=== PATIENT | female | born 1995 | race Caucasian/White ===

== ENCOUNTER 2016-11-22 21:35 | Emergency (ER) | payer OTHER ==
[2016-11-22 21:56] VITALS: BP 128/71; PULSE 68; TEMP 98.1; BMI 26.4
--- NOTE | 2016-11-22 22:21 | PDOC ---
History of Present Illness - General Chief Complaint: Bone Injury Stated Complaint: LT FOOT INJURY Time Seen by Provider: 11/22/16 22:04 History Source: Patient Exam Limitations: No Limitations - History of Present Illness Initial Comments: 11/22/16 22:18 CC pain left great toe post trip and hitting wall with toe Occurred: reports: just prior to arrival Severity: Yes: moderate Lower Extremity Pain Location: left: 1st toe Past History - Past Medical History Allergies/Adverse Reactions: Allergies Allergy/AdvReac Type Severity Reaction Status Date / Time No Known Allergies Allergy Verified 11/22/16 21:53 Home Medications: Ambulatory Orders No Home Medications 0 dose .ROUTE UTDICT 03/06/13 - Immunization History Immunization Up to Date: Yes - Psycho/Social/Smoking Cessation Hx Anxiety: No Suicidal Ideation: No Smoking Status: No Smoking History: Never smoked Number of Cigarettes Smoked Daily: 0 Information on smoking cessation initiated: No Hx Alcohol Use: No Drug/Substance Use Hx: No Review of Systems - Review of Systems Constitutional: No: Symptoms Reported, Chills, Fever HEENTM: No: Symptoms Reported Respiratory: No: Symptoms reported, Cough Musculoskeletal: Yes: Joint Pain, Joint Swelling Integumentary: Yes: Erythema, Other *Physical Exam - Vital Signs Last Vital Signs Temp Pulse Resp BP Pulse Ox 98.1 F 68 12 128/71 97 11/22/16 21:54 11/22/16 21:54 11/22/16 21:54 11/22/16 21:54 11/22/16 21:54 - Physical Exam General Appearance: Yes: Appropriately Dressed. No: Apparent Distress HEENT: negative: TMs Normal, Pharynx Normal Neck: positive: Supple Respiratory/Chest: positive: Lungs Clear Musculoskeletal: positive: Other (STS dital great toe with tenderness) Integumentary: positive: Bruising (distal half toe), Other (no skin break; nail intact) ED Treatment Course - ADDITIONAL ORDERS Additional order review: Laboratory Results 11/22/16 22:00 Urine HCG, Qual Negative - RADIOLOGY Radiology Studies Ordered: Category Date Time Status TOE(S) LEFT [RAD] Stat Radiology 11/22/16 22:15 Ordered Medical Decision Making - Medical Decision Making 11/22/16 22:57 no fracture; will jayashree splint x 3-4 days *DC/Admit/Observation/Transfer Diagnosis at time of Disposition: Contusion of toe of left foot Qualifiers: Encounter type: initial encounter Toe: great toe Damage to nail status: without damage Qualified Code(s): S90.112A - Contusion of left great toe without damage to nail, initial encounter - Discharge Dispostion Disposition: HOME Condition at time of disposition: Stable Admit: No - Patient Instructions Additional Instructions: wear jayashree splint; rest area
== END 2016-11-22 23:02 | disposition home or self-care (01) ==
LOC: JERFT 21:35
DX: S90.112A Contusion of left great toe without damage to nail, initial encounter (principal); W01.198A Fall on same level from slipping, tripping and stumbling with subsequent striking against other object, initial encounter; Y93.89 Activity, other specified; Y92.89 Other specified places as the place of occurrence of the external cause
CPT/HCPCS: 73660-TC; 84703; 99281-25

== ENCOUNTER 2019-02-26 03:39 | Emergency (ER) | payer OTHER ==
[2019-02-26 03:47] VITALS: BP 106/67; PULSE 66; TEMP 98.4; BMI 26.4
[2019-02-26] MEDS ORDERED: DEXAMETHASONE LIQUID 0.5 MG/5 ML 240 ML BULK BOTTLE PO ONE (04:15)
[2019-02-26] MEDS ORDERED: diphenhydrAMINE HCL 50 MG CAPSULE PO ONE (04:15)
--- NOTE | 2019-02-26 04:23 | PDOC ---
History of Present Illness - General Chief Complaint: Allergic Reaction Stated Complaint: RASH Time Seen by Provider: 02/26/19 04:11 History Source: Patient Exam Limitations: No Limitations - History of Present Illness Initial Comments: 02/26/19 04:20 HISTORY OF PRESENT ILLNESS: 23-year-old female denies medical history of presents emergency Department for evaluation of hives which started upon awaking on 02/25. Patient denies any change in soaps, shampoos, detergents, cosmetics, foods or medications. Patient is tried putting hydrocortisone ointment on the lesions with minimal result of the itching. No recent travel or sick contacts. PAST MEDICAL HISTORY: Denies past medical history SURGICAL HISTORY: Denies ALLERGIES: No known drug allergies REVIEW OF SYSTEMS General/Constitutional: Denies fever or chills. Denies weakness, weight change. HEENT: Denies change in vision. Denies ear pain or discharge. Denies sore throat. Cardiovascular: Denies chest pain or shortness of breath. Respiratory: Denies cough, wheezing, or hemoptysis. Gastrointestinal: Denies nausea, vomiting, diarrhea or constipation. Denies rectal bleeding. Genitourinary: Denies dysuria, frequency, or change in urination. Musculoskeletal: Denies joint or muscle swelling or pain. Denies neck or back pain. Skin and breasts: see HPI Neurologic: Denies headache, vertigo, loss of consciousness, or loss of sensation. Psychiatric: Denies depression or anxiety. Endocrine: Denies increased thirst. Denies abnormal weight change. Hematologic/Lymphatic: Denies anemia, easy bleeding, or history of blood clots. Allergic/Immunologic: Denies hives or skin allergy. Denies latex allergy. PHYSICAL EXAM General Appearance: Well-appearing, appropriately dressed. No apparent distress , no intoxication. Neck: No stridor. Respiratory/Chest: Lungs CTAB. No shortness of breath, chest tenderness, respiratory distress, accessory muscle use. No crackles, rales, rhonchi, stridor , wheezing, dullness Cardiovascular: RRR. S1, S2. No JVD, murmur, bradycardia, tachycardia. Vascular Pulses: Dorsalis-Pedis (R): 2+, Dorsalis-Pedis (L): 2+ Musculoskeletal/Extremities: Normal inspection. FROM of all extremities, normal capillary refill. Pelvis Stable. No CVA tenderness. No tenderness to extremities, pedal edema, swelling, erythema or deformity. Integumentary: Scattered hives present to bilateral upper extremities, lower back started approximately 24 hours ago. Past History - Past Medical History Allergies/Adverse Reactions: Allergies Allergy/AdvReac Type Severity Reaction Status Date / Time No Known Allergies Allergy Verified 02/26/19 03:44 Home Medications: Ambulatory Orders No Home Medications 0 dose .ROUTE UTDICT 03/06/13 hydrOXYzine HCL [Atarax -] 25 mg PO TID #21 tablet 02/26/19 COPD: No - Immunization History Immunization Up to Date: Yes - Suicide/Smoking/Psychosocial Hx Smoking Status: No Smoking History: Never smoked Have you smoked in the past 12 months: No Number of Cigarettes Smoked Daily: 0 Information on smoking cessation initiated: No Hx Alcohol Use: No Drug/Substance Use Hx: No *Physical Exam - Vital Signs Last Vital Signs Temp Pulse Resp BP Pulse Ox 98.4 F 66 18 106/67 99 02/26/19 03:42 02/26/19 03:42 02/26/19 03:42 02/26/19 03:42 02/26/19 03:42 Medical Decision Making - Medical Decision Making 02/26/19 04:18 A/P: 23-year-old female with urticaria No inciting, aggravating or alleviating factors or conditions identified No OP edema present No stridor noted Respirations are even and unlabored Benadryl 50 mg orally now Decadron 10 mg orally now Discharge home with prescription for hydroxyzine I discussed the physical exam findings, ancillary test results and final diagnoses with the patient. I answered all of the patient's questions. The patient was satisfied with the care received and felt comfortable with the discharge plan and treatment plan. The patient will call their primary care physician within 24 hours to arrange follow-up and will return to the Emergency Department with any new, persistent or worsening symptoms. *DC/Admit/Observation/Transfer Diagnosis at time of Disposition: Urticaria - Discharge Dispostion Disposition: HOME Condition at time of disposition: Stable Decision to Admit order: No - Prescriptions Prescriptions: hydrOXYzine HCL [Atarax -] 25 mg PO TID #21 tablet - Referrals Referrals: Alvaro Hope MD [Primary Care Provider] - - Patient Instructions Additional Instructions: Rest, keep cool and dry- avoid strenuous activity or hot /humid environments Less hot showers, no abrasive soaps May apply Aveeno, calamine lotion, [id number] hydrocortisone creams as needed for symptoms May use hydroxizine at night for antihistamine, Zyrtec/ Karlee or Claritin for daytime antihistamine use to help with itching May use [id number] hydrocortisone cream on all areas except face Try to identify cause for rash and avoid exposures Followup with PMD in one week if no resolution Make appointment with tight barrel inspector for evaluation when possible - Post Discharge Activity
[2019-02-26] MEDS ORDERED: diphenhydrAMINE HCL 25 MG CAPSULE (FP) PO ONE (04:25)
[2019-02-26] MEDS ORDERED: DEXAMETHASONE SOD PHOSPHATE 10 MG/1 ML VIAL ONE (04:25)
== END 2019-02-26 04:35 | disposition home or self-care (01) ==
LOC: JER 03:39
DX: L50.9 Urticaria, unspecified (principal)
CPT/HCPCS: 99281-25

== ENCOUNTER 2022-03-16 22:23 | Emergency (ER) | payer OTHER ==
[2022-03-16 22:33] VITALS: BMI 58.9
[2022-03-16] MEDS ORDERED: LIDOCAINE VISCOUS 2% ORAL/TOP 15 ML UNIT-DOSE CUP MM ONE (23:08)
[2022-03-16] MEDS ORDERED: ACETAMINOPHEN 1000 MG/100 ML BAG IVPB ONE (23:09)
[2022-03-16] MEDS ORDERED: ACETAMINOPHEN INJECTION 100 ML IVPB ONE (23:29)
[2022-03-16] MEDS ORDERED: DEXAMETHASONE SOD PHOSPHATE 10 MG/1 ML VIAL IVPUSH ONE (23:52)
[2022-03-17] MEDS ORDERED: DEXAMETHASONE SOD PHOSPHATE 10 MG/1 ML VIAL ONE (00:01)
[2022-03-17 01:39] VITALS: BP 115/85; TEMP 98.6
[2022-03-17] MEDS ORDERED: SODIUM CHLORIDE 1,000 ML IV STA (01:50)
[2022-03-17 01:59] VITALS: PULSE 108
== END 2022-03-17 02:06 | disposition short-term general hospital (02) ==
LOC: JER 22:23
PROC: 3E0333Z Introduction of Anti-inflammatory into Peripheral Vein, Percutaneous Approach (ICD-10-PCS; principal; 2022-03-16)
PROC: 3E033GC Introduction of Other Therapeutic Substance into Peripheral Vein, Percutaneous Approach (ICD-10-PCS; 2022-03-16)
PROC: 3E0337Z Introduction of Electrolytic and Water Balance Substance into Peripheral Vein, Percutaneous Approach (ICD-10-PCS; 2022-03-16)
DX: J03.90 Acute tonsillitis, unspecified (principal); R06.02 Shortness of breath; R13.10 Dysphagia, unspecified
CPT/HCPCS: 0241U-QW; 70360-TC-FY; 99284-25; J1100

== ENCOUNTER → 2022-07-24 | Day surgery (SDC) | payer OTHER | END | disposition home or self-care (01) | LOC: JRADIR 09:32 | PROVIDERS: ATTEND Internal Medicine Endocrinology, Diabetes & Metabolism | PROC: 0GBJ3ZX Excision of Thyroid Gland Isthmus, Percutaneous Approach, Diagnostic (ICD-10-PCS; principal; 2022-07-24) | DX: E04.1 Nontoxic single thyroid nodule (principal) | CPT/HCPCS: 10005; 76942; 88173; 88305-TC ==